=== PATIENT | female | born 1955 | race Caucasian/White ===

== ENCOUNTER 2024-02-13 08:23 | Outpatient (CLI) | payer MEDICARE | END 2024-02-13 08:24 | disposition home or self-care (01) | LOC: BICMAMMO 08:23 | PROVIDERS: ATTEND Family Medicine | DX: Z12.31 Encounter for screening mammogram for malignant neoplasm of breast (principal); M85.851 Other specified disorders of bone density and structure, right thigh; M85.852 Other specified disorders of bone density and structure, left thigh; Z80.3 Family history of malignant neoplasm of breast | CPT/HCPCS: 77063; 77067; 77080 ==

== ENCOUNTER 2025-02-10 10:16 | Outpatient (CLI) | payer MEDICARE | END 2025-02-10 10:17 | disposition home or self-care (01) | LOC: BICRAD 10:16 | PROVIDERS: ATTEND Family Medicine | DX: M54.50 Low back pain, unspecified (principal); M47.816 Spondylosis without myelopathy or radiculopathy, lumbar region; M51.369 Other intervertebral disc degeneration, lumbar region without mention of lumbar back pain or lower extremity pain; M47.817 Spondylosis without myelopathy or radiculopathy, lumbosacral region | CPT/HCPCS: 72100 ==

== ENCOUNTER 2025-02-23 08:43 | Outpatient (CLI) | payer MEDICARE | END 2025-02-23 08:44 | disposition home or self-care (01) | LOC: BICMAMMO 08:43 | PROVIDERS: ATTEND Family Medicine | DX: Z12.31 Encounter for screening mammogram for malignant neoplasm of breast (principal); Z80.3 Family history of malignant neoplasm of breast | CPT/HCPCS: 77063; 77067 ==

== ENCOUNTER 2025-04-20 10:03 | Outpatient (CLI) | payer MEDICARE ==
[2025-04-20 10:58] LABS: #Basophils 0.05 10x3/uL (0.0-0.2); #Eosinophils 0.17 10x3/uL (0.0-0.7); #Monocytes 0.63 10x3/uL (0.11-0.59); #Neutrophils 3.20 10x3/uL (1.40-6.50); %Basophils 0.8 % (0.0-1.0); %Eosinophils 2.7 % (0.0-10.0); %Lymphocytes 36.4 % (21.0-51.0); %Monocytes 9.8 % (0.0-10.0); %Neutrophils 50.0 % (42.0-75.0); Hematocrit 37.4 % (36.0-47.0); Hemoglobin 12.5 g/dL (12.0-16.0); Mean Corpuscular Hemoglobin 29.2 pg (27.0-31.0); Mean Corpuscular Volume 87.4 fL (78.0-98.0); Platelet Count 270 10x3/uL (130-400); Red Blood Cell (RBC) Count 4.28 mill/uL (4.20-5.40); White Blood Cell (WBC) Count 6.40 10x3/uL (4.8-10.8)
[2025-04-20 11:12] LABS: INR-International Normal Ratio 0.9; Prothrombin Time 12.6 sec (12.0-14.7)
[2025-04-20 11:17] LABS: ALT (SGPT) 17 U/L (Less than 34); AST (SGOT) 21 U/L (11-34); Albumin 4.2 g/dL (3.1-4.5); Alkaline Phosphatase 35 U/L (40-110); Anion Gap 11 mmol/L (10-20); BUN (Urea Nitrogen) 14 mg/dL (9.8-20.1); Bilirubin, Total 0.4 mg/dL (0.3-1.2); Calc. Creatinine Clearance 0 mL/min (70-130); Calcium 9.4 mg/dL (7.8-10.44); Carbon Dioxide 27 mmol/L (23-31); Chloride 102 mmol/L (98-107); Globulin 2.4 g/dL (2.4-3.5); Glucose 95 mg/dL (80-115); Potassium 4.0 mmol/L (3.5-5.1); Sodium 136 mmol/L (136-145)
== END 2025-04-20 10:04 | disposition home or self-care (01) ==
LOC: LABBT 10:03
PROVIDERS: ATTEND Orthopaedic Surgery
DX: Z01.818 Encounter for other preprocedural examination (principal); M17.12 Unilateral primary osteoarthritis, left knee
CPT/HCPCS: 80053; 85025; 85610; 87081; 93005; 93010

== ENCOUNTER 2025-04-27 05:35 | Observation (INO) | payer MEDICARE ==
[2025-04-20 10:13] VITALS: BMI 23.8
[2025-04-27] MEDS ORDERED: fentaNYL PF 100 MCG/2 ML SYRINGE ONE (06:04)
[2025-04-27] MEDS ORDERED: Vancomycin 1 GM/200 ML (FROZEN) BAG ONE (06:11)
[2025-04-27] MEDS ORDERED: Tranexamic Acid 1,000 MG/10 ML VIAL ONE (06:11)
[2025-04-27] MEDS ORDERED: Bupivacaine 0.25% HCL 30 ML VIAL ONE (06:27)
[2025-04-27] MEDS ORDERED: diphenhydrAMINE 25 MG CAP PO PRN (06:59)
[2025-04-27] MEDS ORDERED: Ondansetron PF 4 MG/2 ML Vial IVP PRN ×2 (06:59→08:00)
[2025-04-27] MEDS ORDERED: Ropivacaine 0.5% HCl/PF (150 MG/30 ML VIAL) ONE (07:00)
[2025-04-27] MEDS ORDERED: Lidocaine 1% (PF) 30 ML VIAL ONE (07:00)
[2025-04-27] MEDS ORDERED: PROPOFOL 200 MG/20 ML VIAL ONE (07:10)
[2025-04-27] MEDS ORDERED: HYDROcodone/Acetaminophen 10/325 mg Tablet PO PRN (08:00)
[2025-04-27] MEDS ORDERED: Ropivacaine 0.2% 550 ML 550 ML NERVE BLCK SCH (08:00)
[2025-04-27] MEDS ORDERED: Ondansetron PF 4 MG/2 ML Vial ONE (08:12)
[2025-04-27] MEDS ORDERED: UBIDECARENONE PO SCH (09:00)
[2025-04-27] MEDS ORDERED: VIT E ACET PO SCH (09:00)
[2025-04-27] MEDS: Losartan 25 MG TAB PO SCH (11:53)
[2025-04-27] MEDS: Ketorolac Tromethamine 30 MG (1 mL) VIAL IVP SCH (12:05)
[2025-04-27] MEDS: valACYclovir 500 MG TAB PO SCH (12:05)
[2025-04-27] MEDS: Acetaminophen 325 MG TAB PO PRN (16:42)
[2025-04-27] MEDS: metFORMIN XR 500 MG ER.TAB PO SCH (16:42)
[2025-04-27] MEDS: Rosuvastatin 5 MG TAB PO SCH (22:15)
[2025-04-27] MEDS: Pantoprazole 40 MG DR.TAB PO SCH (22:15)
[2025-04-28 05:24] LABS: Hematocrit 32.5 % (36.0-47.0); Hemoglobin 10.7 g/dL (12.0-16.0); Mean Corpuscular Hemoglobin 29.5 pg (27.0-31.0); Mean Corpuscular Volume 89.5 fL (78.0-98.0); Platelet Count 235 10x3/uL (130-400); Red Blood Cell (RBC) Count 3.63 mill/uL (4.20-5.40); White Blood Cell (WBC) Count 7.55 10x3/uL (4.8-10.8)
[2025-04-28 05:46] LABS: Anion Gap 13 mmol/L (10-20); BUN (Urea Nitrogen) 18 mg/dL (9.8-20.1); Calc. Creatinine Clearance 92 mL/min (70-130); Calcium 8.5 mg/dL (7.8-10.44); Carbon Dioxide 26 mmol/L (23-31); Chloride 96 mmol/L (98-107); Glucose 127 mg/dL (80-115); Potassium 4.0 mmol/L (3.5-5.1); Sodium 131 mmol/L (136-145)
[2025-04-28] MEDS: Senokot S 8.6-50 MG TAB PO SCH (08:29)
[2025-04-28] MEDS: Ferrous Gluconate 324 MG TAB PO SCH (08:30)
[2025-04-28] MEDS: Multivitamin W/ Minerals 1 TAB PO SCH (08:30)
[2025-04-28] MEDS: HYDROcodone/Acetaminophen 10/325 mg Tablet PO PRN (08:30)
[2025-04-28 09:20] VITALS: BP 117/72; TEMP 97.6
== END 2025-04-28 11:06 | disposition home or self-care (01) ==
LOC: SDC 05:35 → SURG B 11:03 → SDC 13:00 → SURG B 13:27
PROVIDERS: ADMIT Orthopaedic Surgery; ATTEND Orthopaedic Surgery
PROC: 0SRD0JZ Replacement of Left Knee Joint with Synthetic Substitute, Open Approach (ICD-10-PCS; principal; 2025-04-27)
DX: M17.12 Unilateral primary osteoarthritis, left knee (principal); M87.052 Idiopathic aseptic necrosis of left femur; E11.9 Type 2 diabetes mellitus without complications; I10 Essential (primary) hypertension; E78.5 Hyperlipidemia, unspecified; E03.9 Hypothyroidism, unspecified; F41.9 Anxiety disorder, unspecified; I73.9 Peripheral vascular disease, unspecified; Z79.899 Other long term (current) drug therapy; Z79.890 Hormone replacement therapy; Z79.84 Long term (current) use of oral hypoglycemic drugs; Z88.1 Allergy status to other antibiotic agents; Z88.2 Allergy status to sulfonamides; Z88.8 Allergy status to other drugs, medicaments and biological substances
CPT/HCPCS: 0055T; 27447; 64447; 36415; 36416; 80048; 85027; A4306; C1713; C1776; C1889; J0169; J0665; J1885; J2003; J2250; J2405; J2704; J2795; J3010; J3373

== ENCOUNTER 2025-05-06 11:34 | Inpatient (IN) | payer MEDICARE ==
[~2025-05-06 11:34] MED LIST: Iopamidol-370 76% 500 ML MDV (1 ML CHARGE) ONE
[2025-05-06 12:29] LABS: #Basophils 0.04 10x3/uL (0.0-0.2); #Eosinophils 0.14 10x3/uL (0.0-0.7); #Monocytes 1.27 10x3/uL (0.11-0.59); #Neutrophils 7.65 10x3/uL (1.40-6.50); %Basophils 0.4 % (0.0-1.0); %Eosinophils 1.2 % (0.0-10.0); %Lymphocytes 18.7 % (21.0-51.0); %Monocytes 11.2 % (0.0-10.0); %Neutrophils 67.5 % (42.0-75.0); Hematocrit 31.6 % (36.0-47.0); Hemoglobin 11.2 g/dL (12.0-16.0); Mean Corpuscular Hemoglobin 29.6 pg (27.0-31.0); Mean Corpuscular Volume 83.6 fL (78.0-98.0); Platelet Count 397 10x3/uL (130-400); Red Blood Cell (RBC) Count 3.78 mill/uL (4.20-5.40); White Blood Cell (WBC) Count 11.33 10x3/uL (4.8-10.8)
[2025-05-06 12:49] LABS: ALT (SGPT) 14 U/L (Less than 34); AST (SGOT) 17 U/L (11-34); Albumin 3.9 g/dL (3.1-4.5); Alkaline Phosphatase 66 U/L (40-110); Anion Gap 15 mmol/L (10-20); BUN (Urea Nitrogen) 17 mg/dL (9.8-20.1); Bilirubin, Total 0.7 mg/dL (0.3-1.2); Calc. Creatinine Clearance 0 mL/min (70-130); Calcium 9.4 mg/dL (7.8-10.44); Carbon Dioxide 25 mmol/L (23-31); Chloride 85 mmol/L (98-107); Globulin 2.6 g/dL (2.4-3.5); Glucose 120 mg/dL (80-115); Potassium 3.6 mmol/L (3.5-5.1); Sodium 121 mmol/L (136-145)
[2025-05-06] MEDS ORDERED: Melatonin 3 MG TAB PO PRN (16:06)
[2025-05-06] MEDS ORDERED: Senokot S 8.6-50 MG TAB PO PRN (16:06)
[2025-05-06] MEDS ORDERED: Dextrose 50% Abboject 50 ML SYRINGE SLOW IVP PRN (16:14)
[2025-05-06] MEDS ORDERED: Glucagon 1 MG/ML KIT IM PRN (16:14)
[2025-05-06 16:25] VITALS: BMI 23.1
[2025-05-06 17:29] LABS: Osmolality, Serum 254 mOsm/kg (280-301)
[2025-05-06 18:41] LABS: Osmolality, Urine 333 mOsm/kg (50-1200)
[2025-05-06] MEDS: metFORMIN XR 500 MG ER.TAB PO SCH (20:49)
[2025-05-06] MEDS: Rosuvastatin 5 MG TAB PO SCH (20:49)
[2025-05-06] MEDS: Pantoprazole 40 MG DR.TAB PO SCH (20:49)
[2025-05-07 04:30] LABS: #Basophils 0.05 10x3/uL (0.0-0.2); #Eosinophils 0.17 10x3/uL (0.0-0.7); #Monocytes 1.17 10x3/uL (0.11-0.59); #Neutrophils 6.19 10x3/uL (1.40-6.50); %Basophils 0.5 % (0.0-1.0); %Eosinophils 1.8 % (0.0-10.0); %Lymphocytes 20.3 % (21.0-51.0); %Monocytes 12.2 % (0.0-10.0); %Neutrophils 64.6 % (42.0-75.0); Hematocrit 33.2 % (36.0-47.0); Hemoglobin 11.2 g/dL (12.0-16.0); Mean Corpuscular Hemoglobin 29.2 pg (27.0-31.0); Mean Corpuscular Volume 86.7 fL (78.0-98.0); Platelet Count 427 10x3/uL (130-400); Red Blood Cell (RBC) Count 3.83 mill/uL (4.20-5.40); White Blood Cell (WBC) Count 9.59 10x3/uL (4.8-10.8)
[2025-05-07 04:49] LABS: Anion Gap 14 mmol/L (10-20); BUN (Urea Nitrogen) 14 mg/dL (9.8-20.1); Calc. Creatinine Clearance 104 mL/min (70-130); Calcium 8.9 mg/dL (7.8-10.44); Carbon Dioxide 25 mmol/L (23-31); Chloride 90 mmol/L (98-107); Glucose 125 mg/dL (80-115); Potassium 3.5 mmol/L (3.5-5.1); Sodium 125 mmol/L (136-145)
[2025-05-07] MEDS: Enoxaparin 40 MG (0.4 mL) SYRINGE SC SCH (09:40)
[2025-05-07 14:19] LABS: Anion Gap 14 mmol/L (10-20); BUN (Urea Nitrogen) 17 mg/dL (9.8-20.1); Calc. Creatinine Clearance 90 mL/min (70-130); Calcium 8.8 mg/dL (7.8-10.44); Carbon Dioxide 24 mmol/L (23-31); Chloride 91 mmol/L (98-107); Glucose 142 mg/dL (80-115); Potassium 3.5 mmol/L (3.5-5.1); Sodium 125 mmol/L (136-145)
[2025-05-07] MEDS: Ondansetron PF 4 MG/2 ML Vial IVP PRN (15:05)
[2025-05-07] MEDS: Acetaminophen 325 MG TAB PO PRN (20:11)
[2025-05-07 22:36] LABS: Anion Gap 12 mmol/L (10-20); BUN (Urea Nitrogen) 19 mg/dL (9.8-20.1); Calc. Creatinine Clearance 90 mL/min (70-130); Calcium 8.6 mg/dL (7.8-10.44); Carbon Dioxide 24 mmol/L (23-31); Chloride 91 mmol/L (98-107); Glucose 128 mg/dL (80-115); Potassium 3.4 mmol/L (3.5-5.1); Sodium 124 mmol/L (136-145)
[2025-05-08 04:38] LABS: #Basophils 0.04 10x3/uL (0.0-0.2); #Eosinophils 0.20 10x3/uL (0.0-0.7); #Monocytes 1.22 10x3/uL (0.11-0.59); #Neutrophils 4.89 10x3/uL (1.40-6.50); %Basophils 0.5 % (0.0-1.0); %Eosinophils 2.4 % (0.0-10.0); %Lymphocytes 24.3 % (21.0-51.0); %Monocytes 14.4 % (0.0-10.0); %Neutrophils 57.7 % (42.0-75.0); Hematocrit 32.8 % (36.0-47.0); Hemoglobin 11.1 g/dL (12.0-16.0); Mean Corpuscular Hemoglobin 29.2 pg (27.0-31.0); Mean Corpuscular Volume 86.3 fL (78.0-98.0); Platelet Count 434 10x3/uL (130-400); Red Blood Cell (RBC) Count 3.80 mill/uL (4.20-5.40); White Blood Cell (WBC) Count 8.47 10x3/uL (4.8-10.8)
[2025-05-08 05:04] LABS: Anion Gap 10 mmol/L (10-20); BUN (Urea Nitrogen) 16 mg/dL (9.8-20.1); Calc. Creatinine Clearance 104 mL/min (70-130); Calcium 8.8 mg/dL (7.8-10.44); Carbon Dioxide 25 mmol/L (23-31); Chloride 95 mmol/L (98-107); Glucose 120 mg/dL (80-115); Potassium 3.8 mmol/L (3.5-5.1); Sodium 126 mmol/L (136-145)
[2025-05-08] MEDS: Betamethasone 0.1% Cream 45 GM TUBE TOP PRN (21:44)
[2025-05-09 05:52] LABS: #Basophils 0.05 10x3/uL (0.0-0.2); #Eosinophils 0.23 10x3/uL (0.0-0.7); #Monocytes 1.06 10x3/uL (0.11-0.59); #Neutrophils 5.28 10x3/uL (1.40-6.50); %Basophils 0.6 % (0.0-1.0); %Eosinophils 2.6 % (0.0-10.0); %Lymphocytes 24.9 % (21.0-51.0); %Monocytes 11.9 % (0.0-10.0); %Neutrophils 59.3 % (42.0-75.0); Hematocrit 31.2 % (36.0-47.0); Hemoglobin 10.5 g/dL (12.0-16.0); Mean Corpuscular Hemoglobin 29.2 pg (27.0-31.0); Mean Corpuscular Volume 86.9 fL (78.0-98.0); Platelet Count 416 10x3/uL (130-400); Red Blood Cell (RBC) Count 3.59 mill/uL (4.20-5.40); White Blood Cell (WBC) Count 8.89 10x3/uL (4.8-10.8)
[2025-05-09 06:06] LABS: Anion Gap 14 mmol/L (10-20); BUN (Urea Nitrogen) 17 mg/dL (9.8-20.1); Calc. Creatinine Clearance 111 mL/min (70-130); Calcium 8.7 mg/dL (7.8-10.44); Carbon Dioxide 21 mmol/L (23-31); Chloride 97 mmol/L (98-107); Glucose 119 mg/dL (80-115); Potassium 3.5 mmol/L (3.5-5.1); Sodium 128 mmol/L (136-145)
[2025-05-09] MEDS: Losartan 25 MG TAB PO SCH (14:03)
[2025-05-10 03:34] VITALS: TEMP 97.6
[2025-05-10 07:22] LABS: Anion Gap 13 mmol/L (10-20); BUN (Urea Nitrogen) 11 mg/dL (9.8-20.1); Calc. Creatinine Clearance 113 mL/min (70-130); Calcium 8.9 mg/dL (7.8-10.44); Carbon Dioxide 24 mmol/L (23-31); Chloride 97 mmol/L (98-107); Glucose 125 mg/dL (80-115); Potassium 3.6 mmol/L (3.5-5.1); Sodium 130 mmol/L (136-145)
[2025-05-10] MEDS: valACYclovir 500 MG TAB PO SCH (08:37)
[2025-05-10] MEDS: Losartan 25 MG TAB PO SCH (08:37)
[2025-05-10 11:22] VITALS: BP 159/70
== END 2025-05-10 12:55 | disposition home or self-care (01) | DRG 645 ==
LOC: ERS 11:34 → OBS 14:25
PROVIDERS: ADMIT Internal Medicine; ATTEND Internal Medicine
DX: E22.2 Syndrome of inappropriate secretion of antidiuretic hormone (principal); E78.5 Hyperlipidemia, unspecified; I10 Essential (primary) hypertension; I25.10 Atherosclerotic heart disease of native coronary artery without angina pectoris; K21.9 Gastro-esophageal reflux disease without esophagitis; E11.51 Type 2 diabetes mellitus with diabetic peripheral angiopathy without gangrene; J30.2 Other seasonal allergic rhinitis; T50.2X5A Adverse effect of carbonic-anhydrase inhibitors, benzothiadiazides and other diuretics, initial encounter; E03.9 Hypothyroidism, unspecified; Z79.899 Other long term (current) drug therapy; Z79.01 Long term (current) use of anticoagulants; Z88.1 Allergy status to other antibiotic agents; Z79.4 Long term (current) use of insulin; Z79.890 Hormone replacement therapy; Z79.84 Long term (current) use of oral hypoglycemic drugs
CPT/HCPCS: 36415; 36416; 71275; 80048; 80053; 82533; 82570; 83880; 83930; 83935; 84300; 84443; 84484; 84550; 85025; 93005; 94760; J1650; J2405; J7030; Q9967